=== PATIENT | female | born 1995 | race Caucasian/White ===

== ENCOUNTER 2018-04-21 11:14 | Inpatient (IN) | payer BC ==
[2018-04-21] MEDS ORDERED: Terbutaline 1 MG/ML SDV SUBCUT PRN (11:53)
[2018-04-21] MEDS ORDERED: Methylergonovine 0.2 MG/1 ML Amp IM PRN (11:54)
[2018-04-21] MEDS ORDERED: Nalbuphine 10 MG/1 ML Vial IVPUSH PRN (11:54)
[2018-04-21] MEDS ORDERED: Tranexamic Acid 1,000 MG in Sodium Chloride 0.9% 100 ML IV PRN (11:54)
[2018-04-21] MEDS ORDERED: Sodium Chloride 0.9% 2.5 ML Syringe FLUSH PRN (11:54)
[2018-04-21] MEDS ORDERED: Butorphanol 1 MG/ML SDV IVPUSH PRN (11:54)
[2018-04-21] MEDS ORDERED: Water For Irrigation,Sterile 1,000 ML Container IRR PRN (11:54)
[2018-04-21] MEDS ORDERED: Misoprostol 200 MCG Tab PO PRN (11:54)
[2018-04-21] MEDS ORDERED: Carboprost Tromethamine 250 MCG/1 ML Amp IM PRN (11:54)
[2018-04-21] MEDS ORDERED: Sodium Chloride 0.9% 10 ML Syringe FLUSH PRN (11:54)
[2018-04-21] MEDS ORDERED: Lidocaine 1% 50 ML MDV INJECT PRN (11:54)
[2018-04-21] MEDS ORDERED: Oxytocin/0.9 % Sodium Chloride 30 UNIT/500 ML BAG IV SCH ×2 (12:00)
[2018-04-21] MEDS: Lactated Ringers 1,000 ML IV SCH ×2 (12:12→16:20)
--- NOTE | 2018-04-21 16:22 | PCM.PREANE ---
Preanesthetic Assessment - Anesthesia/Transfusion/Family Hx Anesthesia History: Prior Anesthesia Without Reaction Family History of Anesthesia Reaction: No Transfusion History: No Prior Transfusion(s) - Review of Systems General: No Symptoms Pulmonary: No Symptoms Cardiovascular: No Symptoms Gastrointestinal: No Symptoms Neurological: No Symptoms Other: Reports: None - Physical Assessment NPO Status Date: 04/21/18 NPO Status Time: 15:00 (sips/chips) Blood Pressure: 124/68 Height: 5 ft 8 in Weight: 172 lb ASA Class: 2 Mental Status: Alert & Oriented x3 Airway Class: Mallampati = 2 Dentition: Reports: Normal Dentition Thyro-Mental Finger Breadths: 3 Mouth Opening Finger Breadths: 3 ROM/Head Extension: Full Lungs: Clear to Auscultation, Normal Respiratory Effort Cardiovascular: Regular Rate, Regular Rhythm - Lab Values: Laboratory Last Values WBC 8.25 K/uL (4.0-11.0) 04/21/18 12:12 RBC 4.38 M/uL (4.30-5.90) 04/21/18 12:12 Hgb 11.8 g/dL (12.0-16.0) L 04/21/18 12:12 Hct 35.9 % (36.0-46.0) L 04/21/18 12:12 MCV 82.0 fL (80.0-98.0) 04/21/18 12:12 MCH 26.9 pg (27.0-32.0) L 04/21/18 12:12 MCHC 32.9 g/dL (31.0-37.0) 04/21/18 12:12 RDW Std Deviation 43.2 fl (28.0-62.0) 04/21/18 12:12 RDW Coeff of Carola 15 % (11.0-15.0) 04/21/18 12:12 Plt Count 121 K/uL (150-400) L 04/21/18 12:12 MPV 12.60 fL (7.40-12.00) H 04/21/18 12:12 Nucleated RBC % 0.0 /100WBC 04/21/18 12:12 Nucleated RBCs # 0 K/uL 04/21/18 12:12 Membrane Rupture POSITIVE 04/21/18 11:20 Blood Type A POSITIVE 04/21/18 12:12 Antibody Screen NEGATIVE 04/21/18 12:12 - Allergies Allergies/Adverse Reactions: Allergies Allergy/AdvReac Type Severity Reaction Status Date / Time No Known Allergies Allergy Verified 04/21/18 11:33 - Blood Blood Available: No Product(s) Available: None - Anesthesia Plan Free Text/Narrative:: Labor Epidural - Acknowledgements Anesthesia Type Planned: Epidural Pt an Appropriate Candidate for the Planned Anesthesia: Yes Alternatives and Risks of Anesthesia Discussed w Pt/Guardian: Yes Pt/Guardian Understands and Agrees with Anesthesia Plan: Yes PreAnesthesia Questionnaire HEENT History: Reports: Impaired Vision Cardiovascular History: Reports: None Respiratory History: Reports: Asthma Gastrointestinal History: Reports: None Genitourinary History: Reports: None 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, Musculoskeletal History: Reports: Fracture Neurological History: Reports: None Psychiatric History: Reports: Anxiety, Depression, Emotional Problems, Panic Attack Endocrine/Metabolic History: Reports: None Hematologic History: Reports: None, Other (See Below) ( 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) Immunologic History: Reports: None Oncologic (Cancer) History: Reports: None Dermatologic History: Reports: Eczema - Infectious Disease History Infectious Disease History: Reports: None - Past Surgical History HEENT Surgical History: Reports: Adenoidectomy, Myringotomy w Tube(s), Tonsillectomy Other HEENT Surgeries/Procedures: patch on left eare drum GI Surgical History: Reports: None Female Surgical History: Reports: None Musculoskeletal Surgical History: Reports: ORIF Other Musculoskeletal Surgeries/Procedures:: pinning left elbow - SUBSTANCE USE Smoking Status *Q: Never Smoker Second Hand Smoke Exposure: Yes Recreational Drug Use History: No - HOME MEDS Home Medications: Home Meds PNV95/Ferrous Fumarate/FA [ Tablet] 1 tab PO DAILY 04/21/18 [History] - CURRENT (IN HOUSE) MEDS Current Meds: Current Medications Butorphanol Tartrate (Stadol) 1 mg IVPUSH Q1H PRN PRN Reason: Pain Carboprost Tromethamine (Hemabate Ds) 250 mcg IM ASDIRECTED PRN PRN Reason: Post Hemorrhage Tranexamic Acid 1,000 mg/ (Sodium Chloride) 110 mls @ 660 mls/hr IV ONETIME PRN PRN Reason: Bleeding Oxytocin/Sodium Chloride (Oxytocin 30 Unit/500 Ml-Ns) 30 unit in 500 mls @ 2 mls/hr IV TITRATE LEESA; Protocol Last Titration: 04/21/18 15:25 Dose: 18 munits/min, 18 mls/hr Lactated Ringer's (Ringers, Lactated) 1,000 mls @ 150 mls/hr IV ASDIRECTED LEESA Last Admin: 04/21/18 16:20 Dose: 999 mls/hr Oxytocin/Sodium Chloride (Oxytocin 30 Unit/500 Ml-Ns) 30 unit in 500 mls @ 999 mls/hr IV TITRATE LEESA Lidocaine HCl (Xylocaine 1%) 50 ml INJECT ONETIME PRN PRN Reason: Laceration repair Methylergonovine Maleate (Methergine) 0.2 mg IM ASDIRECTED PRN PRN Reason: Post Hemorrhage Misoprostol (Cytotec) 200 mcg PO ONETIME PRN PRN Reason: Post Hemorrhage Nalbuphine HCl (Nubain) 10 mg IVPUSH Q1H PRN PRN Reason: Pain (severe 7-10) Sodium Chloride (Saline Flush) 10 ml FLUSH ASDIRECTED PRN PRN Reason: Keep Vein Open Sodium Chloride (Saline Flush) 2.5 ml FLUSH ASDIRECTED PRN PRN Reason: Keep Vein Open Sterile Water (Sterile Water For Irrigation) 1,000 ml IRR ASDIRECTED PRN PRN Reason: delivery Terbutaline Sulfate (Brethine) 0.25 mg SUBCUT ASDIRECTED PRN PRN Reason: Tacysystole
[2018-04-21] MEDS ORDERED: Ropivacaine HCl/PF 100 ML ONE (16:25)
[2018-04-21] MEDS ORDERED: fentaNYL 100 MCG/2 ML SDV ONE (16:25)
[2018-04-21] MEDS ORDERED: Measles, Mumps & Rubella Vaccine 0.5 ML SDV SUBCUT ONE (20:12)
[2018-04-21] MEDS ORDERED: Lanolin 100% Cream 7 GM Tube TOP PRN (20:12)
[2018-04-21] MEDS ORDERED: oxyCODONE 5 MG Tab PO PRN (20:12)
[2018-04-21] MEDS ORDERED: Witch Hazel Medicated Pads 40/Jar TOP PRN (20:12)
[2018-04-21] MEDS ORDERED: Benzocaine/Menthol 20%-0.5% Spray 78 GM Cannister TOP PRN (20:12)
[2018-04-21] MEDS ORDERED: Docusate Sodium 100 MG Cap PO PRN (20:12)
[2018-04-21] MEDS ORDERED: Acetaminophen 500 MG Tab PO PRN (20:12)
[2018-04-21] MEDS ORDERED: Bisacodyl 10 MG Supp RECTAL PRN (20:12)
[2018-04-21] MEDS ORDERED: Ibuprofen 400 MG Tab PO PRN (20:12)
--- NOTE | 2018-04-21 20:18 | PCM.DEL ---
L & D Note - General Info Date of Service: 04/21/18 - Delivery Note Labor: Induced by Oxytocin Delivery Outcome: Livebirth Infant Delivery Method: Spontaneous Vaginal Delivery-Single Delivery Mode: Spontaneous Presentation: Left Occiput Anterior (DARIO) Nuchal Cord: None Anesthesia Type: Epidural Amniotic Fluid Description: Clear Episiotomy Type: None Laceration: 2nd Degree Suture type: Vicryl Suture size: 2-0 Placenta: Intact, Spontaneous Cord: 3 Vessels Estimated Blood Loss: 150 Score 1 min: 9 Score 5 min: 9 Induction Criteria - Wolfe Score Wolfe Score Dilation: 3-4 cm Wolfe Score Effacement: >80% Wolfe Score Infant's Station: -3 Wolfe Score Consistency: Medium Wolfe Score Cervix Position: Midposition Wolfe Score Total: 7 Wolfe Score Presenting Part: Reports: Cephalic - Induction Gestational Age >/= 39 wks: Yes Estimated Pelvis: Reports: Adequate Reassuring Monitoring Strip: Yes Absence of Tachy Systole: Yes - General Info Date of Service: 04/21/18 - Patient Data Vitals - Most Recent: Last Vital Signs Temp Pulse Resp BP 124/68 04/21/18 17:07 Pulse Ox Weight - Most Recent: 172 lb Lab Results Last 24 Hours: Laboratory Results - last 24 hr 04/21/18 04/21/18 04/21/18 Range/Units 11:20 12:12 12:12 WBC 8.25 (4.0-11.0) K/uL RBC 4.38 (4.30-5.90) M/uL Hgb 11.8 L (12.0-16.0) g/dL Hct 35.9 L (36.0-46.0) % MCV 82.0 (80.0-98.0) fL MCH 26.9 L (27.0-32.0) pg MCHC 32.9 (31.0-37.0) g/dL RDW Std Deviation 43.2 (28.0-62.0) fl RDW Coeff of Carola 15 (11.0-15.0) % Plt Count 121 L (150-400) K/uL MPV 12.60 H (7.40-12.00) fL Nucleated RBC % 0.0 /100WBC Nucleated RBCs # 0 K/uL Membrane Rupture POSITIVE Blood Type A POSITIVE Antibody Screen NEGATIVE Med Orders - Current: Current Medications Discontinued Medications Butorphanol Tartrate (Stadol) 1 mg IVPUSH Q1H PRN PRN Reason: Pain Carboprost Tromethamine (Hemabate Ds) 250 mcg IM ASDIRECTED PRN PRN Reason: Post Hemorrhage Fentanyl (Sublimaze) Confirm Administered D[facility] Stop: 04/21/18 16:26 Last Admin: 04/21/18 18:01 Dose: Not Given Tranexamic Acid 1,000 mg/ (Sodium Chloride) 110 mls @ 660 mls/hr IV ONETIME PRN PRN Reason: Bleeding Oxytocin/Sodium Chloride (Oxytocin 30 Unit/500 Ml-Ns) 30 unit in 500 mls @ 2 mls/hr IV TITRATE LEESA; Protocol Last Titration: 04/21/18 17:20 Dose: 22 munits/min, 22 mls/hr Lactated Ringer's (Ringers, Lactated) 1,000 mls @ 150 mls/hr IV ASDIRECTED LEESA Last Admin: 04/21/18 16:20 Dose: 999 mls/hr Oxytocin/Sodium Chloride (Oxytocin 30 Unit/500 Ml-Ns) 30 unit in 500 mls @ 999 mls/hr IV TITRATE LEESA Ropivacaine (Naropin 0.2%) Confirm Administered Dose 100 mls @ as directed .ROUTE .[facility] ONE Stop: 04/21/18 16:26 Last Admin: 04/21/18 18:00 Dose: Not Given Lidocaine HCl (Xylocaine 1%) 50 ml INJECT ONETIME PRN PRN Reason: Laceration repair Methylergonovine Maleate (Methergine) 0.2 mg IM ASDIRECTED PRN PRN Reason: Post Hemorrhage Misoprostol (Cytotec) 200 mcg PO ONETIME PRN PRN Reason: Post Hemorrhage Nalbuphine HCl (Nubain) 10 mg IVPUSH Q1H PRN PRN Reason: Pain (severe 7-10) Sodium Chloride (Saline Flush) 10 ml FLUSH ASDIRECTED PRN PRN Reason: Keep Vein Open Sodium Chloride (Saline Flush) 2.5 ml FLUSH ASDIRECTED PRN PRN Reason: Keep Vein Open Sterile Water (Sterile Water For Irrigation) 1,000 ml IRR ASDIRECTED PRN PRN Reason: delivery Terbutaline Sulfate (Brethine) 0.25 mg SUBCUT ASDIRECTED PRN PRN Reason: Tacysystole - Problem List & Annotations (1) Vaginal delivery SNOMED Code(s): 761268381 Code(s): O80 - ENCOUNTER FOR FULL-TERM UNCOMPLICATED DELIVERY Status: Acute Current Visit: Yes - Problem List Review Problem List Initiated/Reviewed/Updated: Yes - My Orders Last 24 Hours: My Active Orders 04/21/18 11:31 Non Stress Test [RC] PER UNIT ROUTINE Up ad Daija [RC] ASDIRECTED Vaginal Exam [RC] Click to Edit Vital Signs [RC] PER UNIT ROUTINE 04/21/18 11:53 Bedrest Bathroom Privileges [RC] ASDIRECTED Oxygen Therapy [RC] ASDIRECTED Vaginal Exam [RC] PRN 04/21/18 11:54 Heart Tones [RC] CONTINUOUS May Shower [RC] ASDIRECTED Notify Provider [RC] PRN 04/21/18 19:44 BLOOD GAS ARTERIAL UMBILICAL [BG] Routine BLOOD GAS VENOUS UMBILICAL [BG] Routine 04/21/18 20:12 Acetaminophen [Tylenol Extra Strength] 1,000 mg PO Q4H PRN Acetaminophen [Tylenol Extra Strength] 500 mg PO Q4H PRN Benzocaine/Menthol [Dermoplast Pain Relief 20%-0.5% [place]] 78 gm TOP ASDIRECTED PRN Bisacodyl [Dulcolax] 10 mg RECTAL ONETIME PRN Docusate Sodium [Colace] 100 mg PO BID PRN Ibuprofen [Motrin] 400 mg PO Q4H PRN Ibuprofen [Motrin] 800 mg PO Q6H PRN Lanolin [Lansinoh HPA] See Dose Instructions TOP ASDIRECTED PRN Measles, Mumps & Rubella [M-M-R II Vaccine] 0.5 ml SUBCUT .ONCE ONE Witch Nydia [Tucks] 1 pad TOP ASDIRECTED PRN oxyCODONE 5 mg PO Q2H PRN Breast Pump [WOMSER] Per Unit Routine Resuscitation Status Routine 04/21/18 20:13 Patient Status [ADT] Routine May Shower [RC] ASDIRECTED Up ad Daija [RC] ASDIRECTED Vital Signs [RC] PER UNIT ROUTINE Assess Lochia [WOMSER] Per Unit Routine Assess Uterine Involution [WOMSER] Per Unit Routine Perineal Care [OM.PC] Per Unit Routine Peripheral IV Discontinue [OM.PC] Routine 04/22/18 05:11 HEMOGLOBIN/HEMATOCRIT,HH [HEME] Timed 04/22/18 Breakfast Regular Diet [DIET]
--- NOTE | 2018-04-22 02:11 | OR ---
SURGEON: Cristina Garcia MD DATE OF PROCEDURE: 04/21/2018 PREOPERATIVE DIAGNOSES: 1. Term after 39 weeks and 5 days gestation. 2. Premature rupture of membrane. POSTOPERATIVE DIAGNOSES: 1. Term after 39 weeks and 5 days gestation. 2. Premature rupture of membrane. 3. Delivered. PROCEDURE: Induction of labor for premature rupture of membrane with spontaneous vaginal delivery and repair of perineal laceration. ANESTHESIA: Epidural. ESTIMATED BLOOD LOSS: 150 mL. COMPLICATIONS: None. DISPOSITION: Mother and baby stable in Labor and Delivery room, bonding. FINDINGS: Male infant, weight 3570 g, scores 9 and 9 at 1 and 5 minutes respectively. Grossly normal placenta with 3-vessel cord. Midline second- degree perineal laceration. BRIEF HISTORY: Arti is a 22-year-old G2, P1-0-0-1, who presented this morning at 39 weeks and 5 days gestation with a history of leakage of clear fluid approximately 10 hours prior to her presentation with no accompanying contractions. She denied vaginal bleeding and reported movement. Her care was uncomplicated. GBS negative. She was confirmed to be grossly ruptured and was 3 cm dilated without contractions observed on the monitor. Management options were discussed with the patient including expected management versus induction of labor with Pitocin. Risks and benefits of each options were discussed extensively and the patient opted to proceed with induction of labor. Pitocin was then commenced and titrated up as per protocol. She then requested and received epidural for pain management, thereafter she was re-examined and found to have a forebag which was ruptured. At that time, she was 4 cm dilated, with clear fluid return. She became fully dilated approximately 2 hours later and commenced active pushing. She pushed quite well, was set up for delivery in modified dorsal lithotomy position. heart tracing remained category 1. DESCRIPTION OF PROCEDURE: She had a spontaneous vaginal delivery of a live male infant in left occipital anterior position, no nuchal cord, clear amniotic fluid at delivery. Anterior and posterior shoulders and the rest of the baby were delivered without difficulty. Baby was vigorous and cried spontaneously at . The baby was delivered onto the maternal abdomen in attendance of the nursery nurse who was stimulating and drying the baby. Delayed cord clamping was observed and the cord was subsequently cut by the father of the baby. With delivery of the infant, oxytocin infusion was converted to titration for active management of third stage of labor. Cord blood and gas samples were obtained. The placenta was delivered by controlled cord traction and appeared to be complete and intact. The examination of the perineum, vaginal casas and cervix revealed midline second- degree laceration which was repaired in 3 layers using 2-0 Vicryl suture.Repair was hemostatic. Uterine massage was performed. The uterus was found to be well contracted below the umbilicus. The patient tolerated the procedure well. Sponge, instrument, and needle counts were correct at the end of the delivery. ADUMVIV / MODL /[id number] MTDD
[2018-04-22] MEDS: Ibuprofen 800 MG Tab PO PRN ×2 (05:24→20:13)
[2018-04-22] MEDS: Acetaminophen 500 MG Tab PO PRN ×2 (08:32→20:12)
--- NOTE | 2018-04-22 09:00 | PCM.PNPP ---
- General Info Date of Service: 04/22/18 Functional Status: Reports: Pain Controlled, Tolerating Diet, Ambulating, Urinating - Review of Systems General: Denies: Fever, Weakness, Malaise HEENT: Denies: Headaches Pulmonary: Denies: Shortness of Breath, Pleuritic Chest Pain Cardiovascular: Denies: Chest Pain, Palpitations, Dyspnea on Exertion Genitourinary: Denies: Dysuria, Retention Psychiatric: Denies: Confusion, Depression, Mood Lability, Anxiety - General Info Date of Service: 04/22/18 - Patient Data Vital Signs - Most Recent: Last Vital Signs Temp 36.7 C 04/22/18 05:00 Pulse 70 04/22/18 05:00 Resp 17 04/22/18 05:00 BP 135/80 04/22/18 05:00 Pulse Ox 97 04/22/18 05:00 Weight - Most Recent: 172 lb Lab Results - Last 24 Hours: Laboratory Results - last 24 hr 04/21/18 04/21/18 04/21/18 Range/Units 11:20 12:12 12:12 WBC 8.25 (4.0-11.0) K/uL RBC 4.38 (4.30-5.90) M/uL Hgb 11.8 L (12.0-16.0) g/dL Hct 35.9 L (36.0-46.0) % MCV 82.0 (80.0-98.0) fL MCH 26.9 L (27.0-32.0) pg MCHC 32.9 (31.0-37.0) g/dL RDW Std Deviation 43.2 (28.0-62.0) fl RDW Coeff of Carola 15 (11.0-15.0) % Plt Count 121 L (150-400) K/uL MPV 12.60 H (7.40-12.00) fL Nucleated RBC % 0.0 /100WBC Nucleated RBCs # 0 K/uL Cord ABG pH (7.18-7.38) Cord ABG Base Excess (-10--2) Cord VBG pH (7.25-7.45) Cord VBG Base Excess (-10--2) Membrane Rupture POSITIVE Blood Type A POSITIVE Antibody Screen NEGATIVE 04/21/18 04/22/18 Range/Units 19:43 06:20 WBC (4.0-11.0) K/uL RBC (4.30-5.90) M/uL Hgb 10.9 L (12.0-16.0) g/dL Hct 33.6 L (36.0-46.0) % MCV (80.0-98.0) fL MCH (27.0-32.0) pg MCHC (31.0-37.0) g/dL RDW Std Deviation (28.0-62.0) fl RDW Coeff of Carola (11.0-15.0) % Plt Count (150-400) K/uL MPV (7.40-12.00) fL Nucleated RBC % /100WBC Nucleated RBCs # K/uL Cord ABG pH 7.330 (7.18-7.38) Cord ABG Base Excess -4 (-10--2) Cord VBG pH 7.377 (7.25-7.45) Cord VBG Base Excess -5 (-10--2) Membrane Rupture Blood Type Antibody Screen Med Orders - Current: Current Medications Acetaminophen (Tylenol Extra Strength) 500 mg PO Q4H PRN PRN Reason: Pain Acetaminophen (Tylenol Extra Strength) 1,000 mg PO Q4H PRN PRN Reason: Pain Last Admin: 04/22/18 08:32 Dose: 1,000 mg Benzocaine/Menthol (Dermoplast Pain Relief 20%-0.5% [place]) 78 gm TOP ASDIRECTED PRN PRN Reason: Perineal Comfort Measure Bisacodyl (Dulcolax) 10 mg RECTAL ONETIME PRN PRN Reason: Constipation Docusate Sodium (Colace) 100 mg PO BID PRN PRN Reason: Constipation Emollient Ointment (Lansinoh Hpa) 0 gm TOP ASDIRECTED PRN PRN Reason: Sore Nipples Ibuprofen (Motrin) 400 mg PO Q4H PRN PRN Reason: Pain Ibuprofen (Motrin) 800 mg PO Q6H PRN PRN Reason: Pain Last Admin: 04/22/18 05:24 Dose: 800 mg Oxycodone HCl (Oxycodone) 5 mg PO Q2H PRN PRN Reason: Pain Witch Nydia (Tucks) 1 pad TOP ASDIRECTED PRN PRN Reason: comfort care Discontinued Medications Butorphanol Tartrate (Stadol) 1 mg IVPUSH Q1H PRN PRN Reason: Pain Carboprost Tromethamine (Hemabate Ds) 250 mcg IM ASDIRECTED PRN PRN Reason: Post Hemorrhage Fentanyl (Sublimaze) Confirm Administered Dose 100 mcg .ROUTE .[facility] ONE Stop: 04/21/18 16:26 Last Admin: 04/21/18 18:01 Dose: Not Given Tranexamic Acid 1,000 mg/ (Sodium Chloride) 110 mls @ 660 mls/hr IV ONETIME PRN PRN Reason: Bleeding Oxytocin/Sodium Chloride (Oxytocin 30 Unit/500 Ml-Ns) 30 unit in 500 mls @ 2 mls/hr IV TITRATE LEESA; Protocol Last Titration: 04/21/18 17:20 Dose: 22 munits/min, 22 mls/hr Lactated Ringer's (Ringers, Lactated) 1,000 mls @ 150 mls/hr IV ASDIRECTED LEESA Last Admin: 04/21/18 16:20 Dose: 999 mls/hr Oxytocin/Sodium Chloride (Oxytocin 30 Unit/500 Ml-Ns) 30 unit in 500 mls @ 999 mls/hr IV TITRATE LEESA Ropivacaine (Naropin 0.2%) Confirm Administered Dose 100 mls @ as directed .ROUTE .[facility] ONE Stop: 04/21/18 16:26 Last Admin: 04/21/18 18:00 Dose: Not Given Lidocaine HCl (Xylocaine 1%) 50 ml INJECT ONETIME PRN PRN Reason: Laceration repair Measles/Mumps/Rubella Vaccine Live (M-M-R Ii Vaccine) 0.5 ml SUBCUT .ONCE ONE Stop: 04/21/18 20:13 Methylergonovine Maleate (Methergine) 0.2 mg IM ASDIRECTED PRN PRN Reason: Post Hemorrhage Misoprostol (Cytotec) 200 mcg PO ONETIME PRN PRN Reason: Post Hemorrhage Nalbuphine HCl (Nubain) 10 mg IVPUSH Q1H PRN PRN Reason: Pain (severe 7-10) Sodium Chloride (Saline Flush) 10 ml FLUSH ASDIRECTED PRN PRN Reason: Keep Vein Open Sodium Chloride (Saline Flush) 2.5 ml FLUSH ASDIRECTED PRN PRN Reason: Keep Vein Open Sterile Water (Sterile Water For Irrigation) 1,000 ml IRR ASDIRECTED PRN PRN Reason: delivery Terbutaline Sulfate (Brethine) 0.25 mg SUBCUT ASDIRECTED PRN PRN Reason: Tacysystole - Interaction Infant Disposition, : [place] in Room with Family Feeding: Breastfed Infant; Nursed Well Support Person: , Mother, Sister, Other (see below) - Recovery Exam Fundal Level: 2 Fingerbreadths Above Umbilicus Fundal Placement: Midline Lochia Amount: Scant Lochia Color: Rubra/Red Perineum Description: Intact, Minimal Bruising/Swelling Episiotomy/Laceration: Approximated Bladder Status: Voiding Urinary Elimination: Voided - Exam General: Alert, Oriented HEENT: Pupils Equal Lungs: Clear to Auscultation, Normal Respiratory Effort Cardiovascular: Regular Rate, Regular Rhythm GI/Abdominal Exam: Soft, Non-Tender Extremities: Non-Tender, Pedal Edema Skin: Warm Psy/Mental Status: Alert, Normal Affect, Normal Mood - Problem List & Annotations (1) Vaginal delivery SNOMED Code(s): 031111461 Code(s): O80 - ENCOUNTER FOR FULL-TERM UNCOMPLICATED DELIVERY Status: Acute Current Visit: Yes - Problem List Review Problem List Initiated/Reviewed/Updated: Yes - My Orders Last 24 Hours: My Active Orders 04/21/18 11:31 Non Stress Test [RC] PER UNIT ROUTINE Up ad Daija [RC] ASDIRECTED Vaginal Exam [RC] Click to Edit Vital Signs [RC] PER UNIT ROUTINE 04/21/18 11:53 Bedrest Bathroom Privileges [RC] ASDIRECTED Oxygen Therapy [RC] ASDIRECTED Vaginal Exam [RC] PRN 04/21/18 11:54 Heart Tones [RC] CONTINUOUS May Shower [RC] ASDIRECTED Notify Provider [RC] PRN 04/21/18 20:12 Acetaminophen [Tylenol Extra Strength] 1,000 mg PO Q4H PRN Acetaminophen [Tylenol Extra Strength] 500 mg PO Q4H PRN Benzocaine/Menthol [Dermoplast Pain Relief 20%-0.5% [place]] 78 gm TOP ASDIRECTED PRN Bisacodyl [Dulcolax] 10 mg RECTAL ONETIME PRN Docusate Sodium [Colace] 100 mg PO BID PRN Ibuprofen [Motrin] 400 mg PO Q4H PRN Ibuprofen [Motrin] 800 mg PO Q6H PRN Lanolin [Lansinoh HPA] See Dose Instructions TOP ASDIRECTED PRN Witrogelio Nydia [Tucks] 1 pad TOP ASDIRECTED PRN oxyCODONE 5 mg PO Q2H PRN Breast Pump [WOMSER] Per Unit Routine Resuscitation Status Routine 04/21/18 20:13 Patient Status [ADT] Routine May Shower [RC] ASDIRECTED Up ad Daija [RC] ASDIRECTED Vital Signs [RC] PER UNIT ROUTINE Assess Lochia [WOMSER] Per Unit Routine Assess Uterine Involution [WOMSER] Per Unit Routine Perineal Care [OM.PC] Per Unit Routine Peripheral IV Discontinue [OM.PC] Routine 04/22/18 Breakfast Regular Diet [DIET] - Assessment Assessment:: PPD# 1 s/p , stable and afebrile Clinically stable for diacharge today - Plan Plan:: Discharge instructions reviewed. Nothing in the vagina for 6 weeks Bleeding and infection precautions reviewed Continue PNV depression S/S reviewed, encouraged to call with concerns Follow up in 6 weeks at [facility]
--- NOTE | 2018-04-22 10:21 | PCM.POSTAN ---
POST ANESTHESIA ASSESSMENT - MENTAL STATUS Mental Status: Alert - RESPIRATORY Respiratory Status: Respiratory Rate WNL, Airway Patent, O2 Saturation Stable - CARDIOVASCULAR CV Status: Pulse Rate WNL (Patient is comfortable at this time, no signs or symptoms of anesthesia related problems) - GASTROINTESTINAL GI Status: No Symptoms
== END 2018-04-22 21:56 | disposition home or self-care (01) | DRG 560 ==
LOC: MW.OBCHECK 11:14 → MW.OB 11:54 → MW.OBCHECK 12:11 → OBSVTOIN 20:13 → MW.OB 20:13
PROVIDERS: ADMIT Obstetrics & Gynecology; ATTEND Obstetrics & Gynecology
PROC: 10E0XZZ Delivery of Products of Conception, External Approach (ICD-10-PCS; principal; 2018-04-21)
PROC: 3E033VJ Introduction of Other Hormone into Peripheral Vein, Percutaneous Approach (ICD-10-PCS; 2018-04-21)
PROC: 10907ZC Drainage of Amniotic Fluid, Therapeutic from Products of Conception, Via Natural or Artificial Opening (ICD-10-PCS; 2018-04-21)
PROC: 6A550ZT Pheresis of Cord Blood Stem Cells, Single (ICD-10-PCS; 2018-04-21)
PROC: 0KQM0ZZ Repair Perineum Muscle, Open Approach (ICD-10-PCS; 2018-04-21)
PROC: 00HU33Z Insertion of Infusion Device into Spinal Canal, Percutaneous Approach (ICD-10-PCS; 2018-04-21)
DX: O42.02 Full-term premature rupture of membranes, onset of labor within 24 hours of rupture (principal); O70.1 Second degree perineal laceration during delivery; Z3A.39 39 weeks gestation of pregnancy; Z37.0 Single live birth
CPT/HCPCS: 36415; 51702; 59025; 59409; 82803; 84112; 85014; 85018; 85027; 86850; 86900; 86901; 90707; A9270-GY; J2590; J7120

== ENCOUNTER 2019-12-05 05:11 | Inpatient (IN) | payer BC ==
[2019-12-05] MEDS ORDERED: Sodium Chloride 0.9% 2.5 ML Syringe FLUSH PRN (05:32)
[2019-12-05] MEDS ORDERED: Terbutaline 1 MG/ML SDV SUBCUT PRN (05:32)
[2019-12-05] MEDS ORDERED: Sodium Chloride 0.9% 10 ML SDV IV PRN (05:32)
[2019-12-05] MEDS ORDERED: Water For Irrigation,Sterile 1,000 ML Container IRR PRN (05:32)
[2019-12-05] MEDS ORDERED: Misoprostol 200 MCG Tab PO PRN (05:32)
[2019-12-05] MEDS ORDERED: Butorphanol 1 MG/ML SDV IVPUSH PRN (05:32)
[2019-12-05] MEDS ORDERED: Carboprost Tromethamine 250 MCG/1 ML Amp IM PRN (05:32)
[2019-12-05] MEDS ORDERED: Sodium Chloride 0.9% 10 ML Syringe FLUSH PRN (05:32)
[2019-12-05] MEDS ORDERED: Lidocaine 1% 50 ML MDV INJECT PRN (05:32)
[2019-12-05] MEDS ORDERED: Methylergonovine 0.2 MG/1 ML Amp IM PRN (05:32)
[2019-12-05] MEDS ORDERED: Nalbuphine 10 MG/1 ML Vial IVPUSH PRN (05:32)
[2019-12-05] MEDS ORDERED: Tranexamic Acid 1,000 MG in Sodium Chloride 0.9% 100 ML IV PRN (05:32)
[2019-12-05] MEDS ORDERED: Ondansetron 4 MG/2 ML SDV IVPUSH PRN (05:32)
[2019-12-05] MEDS ORDERED: Oxytocin/0.9 % Sodium Chloride 30 UNIT/500 ML BAG IV SCH ×2 (05:45)
[2019-12-05] MEDS: Lactated Ringers 1,000 ML IV SCH ×2 (06:03→07:09)
[2019-12-05] MEDS ORDERED: Bupivicaine/fentaNYL/NS 250 ML ONE (07:06)
--- NOTE | 2019-12-05 07:43 | PCM.PREANE ---
Preanesthetic Assessment - Procedure Proposed Procedure: COntinuous labor epidural - Anesthesia/Transfusion/Family Hx Anesthesia History: Prior Anesthesia Without Reaction Transfusion History: No Prior Transfusion(s) - Review of Systems General: No Symptoms Pulmonary: No Symptoms Cardiovascular: No Symptoms Gastrointestinal: Vomiting Neurological: No Symptoms Other: Reports: None - Physical Assessment Height: 5 ft 8 in Weight: 77.111 kg ASA Class: 2 Mental Status: Alert & Oriented x3 Airway Class: Mallampati = 1 Dentition: Reports: Normal Dentition ROM/Head Extension: Full Lungs: Clear to Auscultation, Normal Respiratory Effort Cardiovascular: Regular Rate, Regular Rhythm - Lab Values: Laboratory Last Values WBC 7.09 K/uL (4.0-11.0) 12/05/19 06:03 RBC 4.58 M/uL (4.30-5.90) 12/05/19 06:03 Hgb 12.4 g/dL (12.0-16.0) 12/05/19 06:03 Hct 38.4 % (36.0-46.0) 12/05/19 06:03 MCV 83.8 fL (80.0-98.0) 12/05/19 06:03 MCH 27.1 pg (27.0-32.0) 12/05/19 06:03 MCHC 32.3 g/dL (31.0-37.0) 12/05/19 06:03 RDW Std Deviation 45.0 fl (28.0-62.0) 12/05/19 06:03 RDW Coeff of Carola 15 % (11.0-15.0) 12/05/19 06:03 Plt Count 111 K/uL (150-400) L 12/05/19 06:03 MPV 13.30 fL (7.40-12.00) H 12/05/19 06:03 Nucleated RBC % 0.0 /100WBC 12/05/19 06:03 Nucleated RBCs # 0 K/uL 12/05/19 06:03 POC Glucose 103 mg/dL (60-110) 12/05/19 05:54 COVID-19 (OSMIN) NEGATIVE (NEGATIVE) 12/05/19 05:25 Blood Type A POSITIVE 12/05/19 06:03 Antibody Screen NEGATIVE 12/05/19 06:03 - Allergies Allergies/Adverse Reactions: Allergies Allergy/AdvReac Type Severity Reaction Status Date / Time No Known Allergies Allergy Verified 11/24/19 16:29 - Anesthesia Plan Pre-Op Medication Ordered: None - Acknowledgements Anesthesia Type Planned: Epidural Pt an Appropriate Candidate for the Planned Anesthesia: Yes Alternatives and Risks of Anesthesia Discussed w Pt/Guardian: Yes Pt/Guardian Understands and Agrees with Anesthesia Plan: Yes PreAnesthesia Questionnaire HEENT History: Reports: Impaired Vision Cardiovascular History: Reports: None Respiratory History: Reports: None Gastrointestinal History: Reports: None Genitourinary History: Reports: None MANAGER PATIENT History: Reports: None, : 3 Para: 2 Musculoskeletal History: Reports: Fracture Neurological History: Reports: None Psychiatric History: Reports: Anxiety, Emotional Problems, Panic Attack Endocrine/Metabolic History: Reports: None Hematologic History: Reports: Other (See Below) ( 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) Immunologic History: Reports: None Oncologic (Cancer) History: Reports: None Dermatologic History: Reports: Eczema - Infectious Disease History Infectious Disease History: Reports: None - Past Surgical History HEENT Surgical History: Reports: Adenoidectomy, Myringotomy w Tube(s), Tonsillectomy Other HEENT Surgeries/Procedures: patch on left eare drum GI Surgical History: Reports: None Female Surgical History: Reports: None Musculoskeletal Surgical History: Reports: ORIF Other Musculoskeletal Surgeries/Procedures:: pinning left elbow - Past Imaging History Past Imaging History: Reports: None - HOME MEDS Home Medications: Home Meds Pnv No.95/Ferrous Fum/Folic AC [ Tablet] 1 tab PO DAILY 04/21/18 [History] - CURRENT (IN HOUSE) MEDS Current Meds: Current Medications Butorphanol Tartrate (Stadol) 1 mg IVPUSH Q1H PRN PRN Reason: Pain Carboprost Tromethamine (Hemabate Ds) 250 mcg IM ASDIRECTED PRN PRN Reason: Post Hemorrhage Oxytocin/Sodium Chloride (Oxytocin 30 Unit/500 Ml-Ns) 30 unit in 500 mls @ 999 mls/hr IV TITRATE LEESA Tranexamic Acid 1,000 mg/ (Sodium Chloride) 110 mls @ 660 mls/hr IV ONETIME PRN PRN Reason: Bleeding Oxytocin/Sodium Chloride (Oxytocin 30 Unit/500 Ml-Ns) 30 unit in 500 mls @ 2 mls/hr IV TITRATE LEESA; Protocol Lactated Ringer's (Ringers, Lactated) 1,000 mls @ 150 mls/hr IV ASDIRECTED LEESA Last Admin: 12/05/19 07:09 Dose: 500 mls/hr Documented by: Lidocaine HCl (Xylocaine 1%) 50 ml INJECT ONETIME PRN PRN Reason: Laceration repair Methylergonovine Maleate (Methergine) 0.2 mg IM ASDIRECTED PRN PRN Reason: Post Hemorrhage Misoprostol (Cytotec) 200 mcg PO ONETIME PRN PRN Reason: Post Hemorrhage Nalbuphine HCl (Nubain) 10 mg IVPUSH Q1H PRN PRN Reason: Pain (severe 7-10) Ondansetron HCl (Zofran) 4 mg IVPUSH Q6H PRN PRN Reason: Nausea/Vomiting Sodium Chloride (Saline Flush) 10 ml FLUSH ASDIRECTED PRN PRN Reason: Keep Vein Open Sodium Chloride (Saline Flush) 2.5 ml FLUSH ASDIRECTED PRN PRN Reason: Keep Vein Open Sodium Chloride (Normal Saline) 10 ml IV ASDIRECTED PRN PRN Reason: IV Use Sterile Water (Sterile Water For Irrigation) 1,000 ml IRR ASDIRECTED PRN PRN Reason: delivery Terbutaline Sulfate (Brethine) 0.25 mg SUBCUT ASDIRECTED PRN PRN Reason: Tacysystole Discontinued Medications Fentanyl/Bupivacaine HCl (Fentanyl/Bupivacaine/Ns 2 Mcg-0.125% 250 Ml) Confirm Administered Dose 250 mls @ as directed .ROUTE .[facility]-MED ONE Stop: 12/05/19 07:07
--- NOTE | 2019-12-05 09:39 | PCM.DEL ---
L & D Note - General Info Date of Service: 12/05/19 Mother's Due Date: 12/11/19 - Delivery Note Labor: Augmented by ARM Delivery Outcome: Livebirth Presentation: Left Occiput Anterior (DARIO) Nuchal Cord: None Anesthesia Type: Epidural Amniotic Fluid Description: Clear Laceration: 2nd Degree Suture type: Other (Monocryl) Suture size: 2-0 Placenta: Manual Removal Cord: 3 Vessels Estimated Blood Loss: 300 Resuscitation Needed: No Score 1 min: 8 Score 5 min: 9 Second Stage Interventions: Reports: Pushing Effectively Delivery Comments (Free Text/Narrative):: Live male delivered at 855am , 8/9 weight 3360g - General Info Date of Service: 12/05/19 - Patient Data Weight - Most Recent: 77.111 kg Lab Results Last 24 Hours: Laboratory Results - last 24 hr 12/05/19 12/05/19 12/05/19 Range/Units 05:25 05:54 06:03 WBC 7.09 (4.0-11.0) K/uL RBC 4.58 (4.30-5.90) M/uL Hgb 12.4 (12.0-16.0) g/dL Hct 38.4 (36.0-46.0) % MCV 83.8 (80.0-98.0) fL MCH 27.1 (27.0-32.0) pg MCHC 32.3 (31.0-37.0) g/dL RDW Std Deviation 45.0 (28.0-62.0) fl RDW Coeff of Carola 15 (11.0-15.0) % Plt Count 111 L (150-400) K/uL MPV 13.30 H (7.40-12.00) fL Nucleated RBC % 0.0 /100WBC Nucleated RBCs # 0 K/uL POC Glucose 103 (60-110) mg/dL COVID-19 (OSMIN) NEGATIVE (NEGATIVE) Blood Type Antibody Screen 12/05/19 Range/Units 06:03 WBC (4.0-11.0) K/uL RBC (4.30-5.90) M/uL Hgb (12.0-16.0) g/dL Hct (36.0-46.0) % MCV (80.0-98.0) fL MCH (27.0-32.0) pg MCHC (31.0-37.0) g/dL RDW Std Deviation (28.0-62.0) fl RDW Coeff of Carola (11.0-15.0) % Plt Count (150-400) K/uL MPV (7.40-12.00) fL Nucleated RBC % /100WBC Nucleated RBCs # K/uL POC Glucose (60-110) mg/dL COVID-19 (OSMIN) (NEGATIVE) Blood Type A POSITIVE Antibody Screen NEGATIVE Med Orders - Current: Current Medications Butorphanol Tartrate (Stadol) 1 mg IVPUSH Q1H PRN PRN Reason: Pain Carboprost Tromethamine (Hemabate Ds) 250 mcg IM ASDIRECTED PRN PRN Reason: Post Hemorrhage Oxytocin/Sodium Chloride (Oxytocin 30 Unit/500 Ml-Ns) 30 unit in 500 mls @ 999 mls/hr IV TITRATE LEESA Tranexamic Acid 1,000 mg/ (Sodium Chloride) 110 mls @ 660 mls/hr IV ONETIME PRN PRN Reason: Bleeding Oxytocin/Sodium Chloride (Oxytocin 30 Unit/500 Ml-Ns) 30 unit in 500 mls @ 2 mls/hr IV TITRATE LEESA; Protocol Lactated Ringer's (Ringers, Lactated) 1,000 mls @ 150 mls/hr IV ASDIRECTED LEESA Last Admin: 12/05/19 07:09 Dose: 500 mls/hr Documented by: Lidocaine HCl (Xylocaine 1%) 50 ml INJECT ONETIME PRN PRN Reason: Laceration repair Methylergonovine Maleate (Methergine) 0.2 mg IM ASDIRECTED PRN PRN Reason: Post Hemorrhage Misoprostol (Cytotec) 200 mcg PO ONETIME PRN PRN Reason: Post Hemorrhage Nalbuphine HCl (Nubain) 10 mg IVPUSH Q1H PRN PRN Reason: Pain (severe 7-10) Ondansetron HCl (Zofran) 4 mg IVPUSH Q6H PRN PRN Reason: Nausea/Vomiting Sodium Chloride (Saline Flush) 10 ml FLUSH ASDIRECTED PRN PRN Reason: Keep Vein Open Sodium Chloride (Saline Flush) 2.5 ml FLUSH ASDIRECTED PRN PRN Reason: Keep Vein Open Sodium Chloride (Normal Saline) 10 ml IV ASDIRECTED PRN PRN Reason: IV Use Sterile Water (Sterile Water For Irrigation) 1,000 ml IRR ASDIRECTED PRN PRN Reason: delivery Terbutaline Sulfate (Brethine) 0.25 mg SUBCUT ASDIRECTED PRN PRN Reason: Tacysystole Discontinued Medications Fentanyl/Bupivacaine HCl (Fentanyl/Bupivacaine/Ns 2 Mcg-0.125% 250 Ml) Confirm Administered Dose 250 mls @ as directed .ROUTE .[facility]-MED ONE Stop: 12/05/19 07:07 - Problem List & Annotations (1) Vaginal delivery SNOMED Code(s): 770726370 Code(s): O80 - ENCOUNTER FOR FULL-TERM UNCOMPLICATED DELIVERY Status: Acute Current Visit: No (2) Gestational diabetes mellitus SNOMED Code(s): 23926600 Code(s): O24.419 - GESTATIONAL DIABETES MELLITUS IN , UNSP CONTROL Status: Acute Current Visit: Yes - Problem List Review Problem List Initiated/Reviewed/Updated: Yes - My Orders Last 24 Hours: My Active Orders 12/05/19 05:32 Blood Glucose Check, Bedside [RC] ASDIRECTED Peripheral IV Care [RC] PRN Butorphanol [Stadol] 1 mg IVPUSH Q1H PRN Carboprost Tromethamine [Hemabate DS] 250 mcg IM ASDIRECTED PRN Lidocaine 1% [Xylocaine 1%] 50 ml INJECT ONETIME PRN Methylergonovine [Methergine] 0.2 mg IM ASDIRECTED PRN Nalbuphine [Nubain] 10 mg IVPUSH Q1H PRN Ondansetron [Zofran] 4 mg IVPUSH Q6H PRN Sodium Chloride 0.9% [Normal Saline] 10 ml IV ASDIRECTED PRN Sodium Chloride 0.9% [Saline Flush] 10 ml FLUSH ASDIRECTED PRN Sodium Chloride 0.9% [Saline Flush] 2.5 ml FLUSH ASDIRECTED PRN Terbutaline [Brethine] 0.25 mg SUBCUT ASDIRECTED PRN Tranexamic Acid [Cyklokapron] 1,000 mg Sodium Chloride 0.9% [Normal Saline] 100 ml IV ONETIME Water For Irrigation,Sterile [Sterile Water for Irrigation] 1,000 ml IRR ASDIRECTED PRN miSOPROStoL [Cytotec] 200 mcg PO ONETIME PRN Resuscitation Status Routine 12/05/19 05:37 Patient Status [ADT] Routine Bedrest Bathroom Privileges [RC] ASDIRECTED Communication Order [RC] ASDIRECTED Communication Order [RC] ASDIRECTED Heart Tones [RC] CONTINUOUS Non Stress Test [RC] PER UNIT ROUTINE Notify Provider [RC] PRN Notify Provider [RC] PRN Oxygen Therapy [RC] ASDIRECTED Vaginal Exam [RC] PRN Vaginal Exam [RC] PRN Vital Signs [RC] PER UNIT ROUTINE Scalp Electrode [WOMSER] Per Unit Routine Peripheral IV Insertion Adult [OM.PC] Routine 12/05/19 05:45 Lactated Ringers [Ringers, Lactated] 1,000 ml IV ASDIRECTED Oxytocin/0.9 % Sodium Chloride [Oxytocin 30 Unit/500 ML-NS] 30 unit in 500 ml IV TITRATE Oxytocin/0.9 % Sodium Chloride [Oxytocin 30 Unit/500 ML-NS] 30 unit in 500 ml IV TITRATE 12/05/19 06:03 RPR (SYPHILIS SERO) W/ RFLX [REF] Routine
[2019-12-05] MEDS ORDERED: Acetaminophen 500 MG Tab PO PRN (09:40)
[2019-12-05] MEDS ORDERED: Ibuprofen 400 MG Tab PO PRN (09:40)
[2019-12-05] MEDS ORDERED: Lanolin 100% Cream 7 GM Tube TOP PRN (09:40)
[2019-12-05] MEDS ORDERED: oxyCODONE 5 MG Tab PO PRN (09:40)
[2019-12-05] MEDS ORDERED: Bisacodyl 10 MG Supp RECTAL PRN (09:40)
[2019-12-05] MEDS ORDERED: Ampicillin/Sulbactam Na 3 GM in Sodium Chloride 0.9% 100 ML IV ONE (09:41)
[2019-12-05] MEDS: Docusate Sodium 100 MG Cap PO PRN (10:21)
[2019-12-05] MEDS: Ibuprofen 800 MG Tab PO PRN (10:22)
[2019-12-05] MEDS: Benzocaine/Menthol 20%-0.5% Spray 78 GM Cannister TOP PRN (10:23)
[2019-12-05] MEDS: Witch Hazel Medicated Pads 40/Jar TOP PRN (10:24)
[2019-12-05] MEDS: Acetaminophen 500 MG Tab PO PRN (16:19)
[2019-12-06] MEDS: Acetaminophen 500 MG Tab PO PRN (01:06)
--- NOTE | 2019-12-06 07:48 | PCM48HPAN ---
Post Anesthesia Note - EVALUATION WITHIN 48HRS OF ANESTHETIC Vital Signs in Normal Range: Yes Patient Participated in Evaluation: Yes Respiratory Function Stable: Yes Airway Patent: Yes Cardiovascular Function Stable: Yes Hydration Status Stable: Yes Pain Control Satisfactory: Yes Nausea and Vomiting Control Satisfactory: Yes Mental Status Recovered: Yes Vital Signs: Last Vital Signs Temp 97.0 F 12/06/19 04:36 Pulse 71 12/06/19 04:36 Resp 15 12/06/19 04:36 BP 136/84 12/06/19 04:36 Pulse Ox 96 12/06/19 04:36 - COMMENTS/OBSERVATIONS Free Text/Narrative:: Pt. has been up walking. Denies any weakness in legs or numbness or tingling.
[2019-12-06] MEDS: Benzocaine/Menthol 20%-0.5% Spray 78 GM Cannister TOP PRN (08:09)
[2019-12-06] MEDS: Ibuprofen 800 MG Tab PO PRN (08:09)
[2019-12-06] MEDS: Docusate Sodium 100 MG Cap PO PRN (08:09)
[2019-12-06] MEDS: Witch Hazel Medicated Pads 40/Jar TOP PRN (08:09)
--- NOTE | 2019-12-06 10:30 | PCM.PNPP ---
- General Info Date of Service: 12/06/19 Functional Status: Reports: Pain Controlled, Tolerating Diet, Ambulating, Urinating - Review of Systems General: Reports: No Symptoms HEENT: Reports: No Symptoms Pulmonary: Reports: No Symptoms Cardiovascular: Reports: No Symptoms Gastrointestinal: Reports: No Symptoms Genitourinary: Reports: No Symptoms Musculoskeletal: Reports: No Symptoms Skin: Reports: No Symptoms Neurological: Reports: No Symptoms Psychiatric: Reports: No Symptoms - General Info Date of Service: 12/06/19 - Patient Data Vital Signs - Most Recent: Last Vital Signs Temp 36.2 C 12/06/19 08:00 Pulse 72 12/06/19 08:00 Resp 14 12/06/19 08:00 BP 123/78 12/06/19 08:00 Pulse Ox 97 12/06/19 08:00 Weight - Most Recent: 77.111 kg Lab Results - Last 24 Hours: Laboratory Results - last 24 hr 12/06/19 12/06/19 Range/Units 05:04 05:04 Hgb 12.5 (12.0-16.0) g/dL Hct 38.9 (36.0-46.0) % Fasting Glucose 105 (74-106) mg/dL Med Orders - Current: Current Medications Acetaminophen (Tylenol Extra Strength) 500 mg PO Q4H PRN PRN Reason: Pain Acetaminophen (Tylenol Extra Strength) 1,000 mg PO Q4H PRN PRN Reason: Pain Last Admin: 12/06/19 01:06 Dose: 1,000 mg Documented by: Benzocaine/Menthol (Dermoplast Pain Relief 20%-0.5% [place]) 78 gm TOP ASDIRECTED PRN PRN Reason: Perineal Comfort Measure Last Admin: 12/06/19 08:09 Dose: 1 spray Documented by: Bisacodyl (Dulcolax) 10 mg RECTAL ONETIME PRN PRN Reason: Constipation Butorphanol Tartrate (Stadol) 1 mg IVPUSH Q1H PRN PRN Reason: Pain Carboprost Tromethamine (Hemabate Ds) 250 mcg IM ASDIRECTED PRN PRN Reason: Post Hemorrhage Docusate Sodium (Colace) 100 mg PO BID PRN PRN Reason: Constipation Last Admin: 12/06/19 08:09 Dose: 100 mg Documented by: Emollient Ointment (Lansinoh Hpa) 0 gm TOP ASDIRECTED PRN PRN Reason: Sore Nipples Oxytocin/Sodium Chloride (Oxytocin 30 Unit/500 Ml-Ns) 30 unit in 500 mls @ 999 mls/hr IV TITRATE LEESA Tranexamic Acid 1,000 mg/ (Sodium Chloride) 110 mls @ 660 mls/hr IV ONETIME PRN PRN Reason: Bleeding Oxytocin/Sodium Chloride (Oxytocin 30 Unit/500 Ml-Ns) 30 unit in 500 mls @ 2 mls/hr IV TITRATE LEESA; Protocol Lactated Ringer's (Ringers, Lactated) 1,000 mls @ 150 mls/hr IV ASDIRECTED LEESA Last Admin: 12/05/19 07:09 Dose: 500 mls/hr Documented by: Ibuprofen (Motrin) 400 mg PO Q4H PRN PRN Reason: Pain Ibuprofen (Motrin) 800 mg PO Q6H PRN PRN Reason: Pain Last Admin: 12/06/19 08:09 Dose: 800 mg Documented by: Lidocaine HCl (Xylocaine 1%) 50 ml INJECT ONETIME PRN PRN Reason: Laceration repair Methylergonovine Maleate (Methergine) 0.2 mg IM ASDIRECTED PRN PRN Reason: Post Hemorrhage Misoprostol (Cytotec) 200 mcg PO ONETIME PRN PRN Reason: Post Hemorrhage Nalbuphine HCl (Nubain) 10 mg IVPUSH Q1H PRN PRN Reason: Pain (severe 7-10) Ondansetron HCl (Zofran) 4 mg IVPUSH Q6H PRN PRN Reason: Nausea/Vomiting Oxycodone HCl (Oxycodone) 5 mg PO Q2H PRN PRN Reason: Pain Sodium Chloride (Saline Flush) 10 ml FLUSH ASDIRECTED PRN PRN Reason: Keep Vein Open Sodium Chloride (Saline Flush) 2.5 ml FLUSH ASDIRECTED PRN PRN Reason: Keep Vein Open Sodium Chloride (Normal Saline) 10 ml IV ASDIRECTED PRN PRN Reason: IV Use Sterile Water (Sterile Water For Irrigation) 1,000 ml IRR ASDIRECTED PRN PRN Reason: delivery Terbutaline Sulfate (Brethine) 0.25 mg SUBCUT ASDIRECTED PRN PRN Reason: Tacysystole Witch Anand (Tucks) 1 pad TOP ASDIRECTED PRN PRN Reason: comfort care Last Admin: 12/06/19 08:09 Dose: 1 pad Documented by: Discontinued Medications Fentanyl/Bupivacaine HCl (Fentanyl/Bupivacaine/Ns 2 Mcg-0.125% 250 Ml) Confirm Administered Dose 250 mls @ as directed .ROUTE .STK-MED ONE Stop: 12/05/19 07:07 Last Admin: 12/06/19 09:07 Dose: Not Given Documented by: Ampicillin Sodium/Sulbactam (Sodium 3 gm/ Sodium Chloride) 100 mls @ 200 mls/hr IV ONETIME ONE Stop: 12/05/19 10:10 Last Admin: 12/05/19 10:25 Dose: 200 mls/hr Documented by: - Infant Interaction Support Person: - Recovery Exam Fundal Tone: Firm Fundal Level: At Umbilicus Fundal Placement: Midline Lochia Amount: Scant Lochia Color: Rubra/Red Perineum Description: Intact, Minimal Bruising/Swelling Episiotomy/Laceration: Approximated Bladder Status: Voiding - Exam Quality Assessment: Supplemental Oxygen General: Alert HEENT: Pupils Equal Neck: Supple Lungs: Clear to Auscultation GI/Abdominal Exam: Normal Bowel Sounds Extremities: Normal Inspection - Problem List & Annotations (1) Vaginal delivery SNOMED Code(s): 974052454 Code(s): O80 - ENCOUNTER FOR FULL-TERM UNCOMPLICATED DELIVERY Status: Acute Current Visit: No (2) Gestational diabetes mellitus SNOMED Code(s): 27503019 Code(s): O24.419 - GESTATIONAL DIABETES MELLITUS IN , UNSP CONTROL Status: Acute Current Visit: Yes - Problem List Review Problem List Initiated/Reviewed/Updated: Yes - My Orders Last 24 Hours: My Active Orders 12/05/19 09:40 Patient Status [ADT] Routine May Shower [RC] ASDIRECTED Up ad Daija [RC] ASDIRECTED Acetaminophen [Tylenol Extra Strength] 1,000 mg PO Q4H PRN Acetaminophen [Tylenol Extra Strength] 500 mg PO Q4H PRN Benzocaine/Menthol [Dermoplast Pain Relief 20%-0.5% [place]] 78 gm TOP ASDIRECTED PRN Docusate Sodium [Colace] 100 mg PO BID PRN Ibuprofen [Motrin] 400 mg PO Q4H PRN Ibuprofen [Motrin] 800 mg PO Q6H PRN Lanolin [Lansinoh HPA] See Dose Instructions TOP ASDIRECTED PRN bisacodyL [Dulcolax] 10 mg RECTAL ONETIME PRN oxyCODONE 5 mg PO Q2H PRN witch Anand [Tucks] 1 pad TOP ASDIRECTED PRN Assess Lochia [WOMSER] Per Unit Routine Assess Uterine Involution [WOMSER] Per Unit Routine Peripheral IV Discontinue [OM.PC] Routine Resuscitation Status Routine 12/06/19 Breakfast Regular Diet [DIET] - Assessment Assessment:: 24yo P2 s/p PPD 1 Normal lochia - Plan Plan:: Routine care Discharge home today
--- NOTE | 2019-12-06 10:47 | OR ---
SURGEON: SHILA ALEMAN DATE OF PROCEDURE: 12/05/2019 PREOPERATIVE DIAGNOSES: A 24-year-old G3, P2-0-0-2 at 39 weeks and 1 day, admitted in early labor with gestational diabetes mellitus A1. POSTOPERATIVE DIAGNOSES: A 24-year-old G3, P2-0-0-2 at 39 weeks and 1 day, admitted in early labor with gestational diabetes mellitus A1. PROCEDURE: 1. Normal spontaneous vaginal delivery. 2. Repair of second-degree laceration. 3. Manual removal of placenta ESTIMATED BLOOD LOSS: 300. INTRAVENOUS FLUID: Pitocin running. ANESTHESIA: Epidural. NOTES AND FINDING: A live male delivered at 8:55 a.m., scores of 8 and 9, and weight is 3360g. BRIEF HISTORY: She is a 24-year-old G3, P2-0-0-2 who was supposed to be admitted for induction of labor, but she came in early labor. She was 4 cm to 5 cm dilated. She was requesting epidural. She was AROM'd. She made quick progress, and she became fully dilated. DESCRIPTION OF PROCEDURE: With patient being fully dilated, she was encouraged to push. With good pushing effort, she delivered the head, subsequently by the anterior and posterior shoulder, and the body of the was delivered. Delayed cord clamping was observed. The placenta was attempted to delivered, but because of difficulty, a manual removal was done without any difficulty. Perineum was then inspected, noted to have a second-degree laceration, which was repaired in layers with 2-0 Monocryl. The patient tolerated the procedure well. All instrument and pad counts were correct x2. VANI / CHRISTOPHER /[id number]
== END 2019-12-06 13:50 | disposition home or self-care (01) | DRG 541 ==
LOC: MW.OBCHECK 05:11 → MW.OB 05:13 → MW.OBCHECK 05:37 → OBSVTOIN 08:55 → MW.OB 13:42
PROVIDERS: ADMIT Obstetrics & Gynecology; ATTEND Obstetrics & Gynecology
PROC: 10E0XZZ Delivery of Products of Conception, External Approach (ICD-10-PCS; principal; 2019-12-05)
PROC: 10907ZC Drainage of Amniotic Fluid, Therapeutic from Products of Conception, Via Natural or Artificial Opening (ICD-10-PCS; 2019-12-05)
PROC: 0KQM0ZZ Repair Perineum Muscle, Open Approach (ICD-10-PCS; 2019-12-05)
PROC: 3E0R3BZ Introduction of Anesthetic Agent into Spinal Canal, Percutaneous Approach (ICD-10-PCS; 2019-12-05)
PROC: 00HU33Z Insertion of Infusion Device into Spinal Canal, Percutaneous Approach (ICD-10-PCS; 2019-12-05)
PROC: 10D17Z9 Manual Extraction of Products of Conception, Retained, Via Natural or Artificial Opening (ICD-10-PCS; 2019-12-05)
DX: O24.429 Gestational diabetes mellitus in childbirth, unspecified control (principal); O70.1 Second degree perineal laceration during delivery; Z37.0 Single live birth; Z3A.39 39 weeks gestation of pregnancy; Z20.828 Contact with and (suspected) exposure to other viral communicable diseases
CPT/HCPCS: 36415; 51702; 59025; 59409; 82947; 82962; 85014; 85018; 85027; 86592; 86850; 86900; 86901; A9270-GY; J0295; J7050; J7120; U0002

== ENCOUNTER 2021-01-13 05:56 | Emergency (ER) | payer BC ==
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
--- NOTE | 2021-01-13 07:13 | CR ---
INDICATION: Patient fell; pain left foot. COMPARISON: None. Technique: Three-view study left foot. FINDINGS: No evidence of acute fracture or dislocation. No bone or soft tissue abnormalities. IMPRESSION: Negative radiographic examination of the left foot. Dictated by Franchesca Amin MD @ 01/13/2021 7:11:20 AM (Electronically Signed)
== END 2021-01-13 07:44 | disposition home or self-care (01) ==
LOC: MW.ED 05:56
DX: S99.922A Unspecified injury of left foot, initial encounter (principal); X50.1XXA Overexertion from prolonged static or awkward postures, initial encounter
CPT/HCPCS: 73630-26-LT; 73630-LT; 81025; 99283

== ENCOUNTER 2021-07-28 14:03 | Emergency (ER) | payer BC ==
[2021-07-28 15:00] LABS: BLOOD UREA NITROGEN,BUN 8 mg/dL (7.0-18.0); CARBON DIOXIDE,CO2 22.3 mmol/L (21.0-32.0); CHLORIDE,CL 103 mmol/L (98-107); GLUCOSE RANDOM 90 mg/dL (74-106); POTASSIUM,K 3.7 mmol/L (3.5-5.1); SODIUM,NA 135 mmol/L (136-145)
== END 2021-07-28 16:16 | disposition home or self-care (01) ==
LOC: MW.ED 14:03
DX: R20.2 Paresthesia of skin (principal)
CPT/HCPCS: 36415; 80053; 85025; 99284

== ENCOUNTER 2021-09-14 05:06 | Inpatient (IN) | payer BC ==
[2021-09-14] MEDS ORDERED: Terbutaline 1 MG/ML SDV SUBCUT PRN (05:12)
[2021-09-14] MEDS ORDERED: Ondansetron 4 MG/2 ML SDV IVPUSH PRN (05:13)
[2021-09-14] MEDS ORDERED: Lidocaine 1% 50 ML MDV INJECT PRN (05:13)
[2021-09-14] MEDS ORDERED: Carboprost Tromethamine 250 MCG/1 ML Amp IM PRN (05:13)
[2021-09-14] MEDS ORDERED: Tranexamic Acid 1,000 MG in Sodium Chloride 0.9% 100 ML IV PRN (05:13)
[2021-09-14] MEDS ORDERED: Sodium Chloride 0.9% 20 ML SDV IV PRN (05:13)
[2021-09-14] MEDS ORDERED: Sodium Chloride 0.9% 2.5 ML Syringe FLUSH PRN (05:13)
[2021-09-14] MEDS ORDERED: Butorphanol 1 MG/ML SDV IVPUSH PRN (05:13)
[2021-09-14] MEDS ORDERED: Methylergonovine 0.2 MG/1 ML Amp IM PRN (05:13)
[2021-09-14] MEDS ORDERED: Sodium Chloride 0.9% 10 ML Syringe FLUSH PRN (05:13)
[2021-09-14] MEDS ORDERED: Misoprostol 200 MCG Tab PO PRN (05:13)
[2021-09-14] MEDS ORDERED: Water For Irrigation,Sterile 1,000 ML Container IRR PRN (05:13)
[2021-09-14] MEDS ORDERED: Oxytocin/0.9 % Sodium Chloride 30 UNIT/500 ML BAG IV SCH ×2 (05:15)
[2021-09-14] MEDS: Lactated Ringers 1,000 ML IV SCH ×2 (06:05→09:29)
[2021-09-14] MEDS ORDERED: ePHEDrine 50 MG/ML SDV IVPUSH PRN ×2 (07:21)
[2021-09-14] MEDS ORDERED: Ropivacaine in NACL,ISO-OSM/PF 800 MG in Premix Bag 1 BAG EPIDUR SCH ×2 (07:30)
[2021-09-14] MEDS ORDERED: oxyCODONE 5 MG Tab PO PRN (12:48)
[2021-09-14] MEDS ORDERED: Ibuprofen 400 MG Tab PO PRN (12:48)
[2021-09-14] MEDS ORDERED: Acetaminophen 500 MG Tab PO PRN (12:48)
[2021-09-14] MEDS ORDERED: Benzocaine/Menthol 20%-0.5% Spray 78 GM Cannister TOP PRN (12:48)
[2021-09-14] MEDS ORDERED: Lanolin 100% Cream 7 GM Tube TOP PRN (12:48)
[2021-09-14] MEDS ORDERED: Docusate Sodium 100 MG Cap PO PRN (12:48)
[2021-09-14] MEDS ORDERED: Bisacodyl 10 MG Supp RECTAL PRN (12:48)
[2021-09-14] MEDS ORDERED: Witch Hazel Medicated Pads 40/Jar TOP PRN (12:48)
[2021-09-14] MEDS ORDERED: Ibuprofen 800 MG Tab PO PRN (12:48)
[2021-09-14] MEDS: Acetaminophen 500 MG Tab PO PRN ×2 (14:52→21:36)
== END 2021-09-15 14:55 | disposition home or self-care (01) | DRG 542 ==
LOC: MW.OBCHECK 05:06 → MW.OB 05:08 → MW.OBCHECK 05:13 → MW.OB 05:13 → OBSVTOIN 12:24 → MW.OB 15:28
PROVIDERS: ADMIT Obstetrics & Gynecology; ATTEND Obstetrics & Gynecology
PROC: 10E0XZZ Delivery of Products of Conception, External Approach (ICD-10-PCS; principal; 2021-09-14)
PROC: 0HQ9XZZ Repair Perineum Skin, External Approach (ICD-10-PCS; 2021-09-14)
PROC: 3E0R3BZ Introduction of Anesthetic Agent into Spinal Canal, Percutaneous Approach (ICD-10-PCS; 2021-09-14)
PROC: 00HU33Z Insertion of Infusion Device into Spinal Canal, Percutaneous Approach (ICD-10-PCS; 2021-09-14)
PROC: 0UBMXZZ Excision of Vulva, External Approach (ICD-10-PCS; 2021-09-14)
DX: O24.420 Gestational diabetes mellitus in childbirth, diet controlled (principal); Z3A.38 38 weeks gestation of pregnancy; Z37.0 Single live birth; Z20.822 Contact with and (suspected) exposure to COVID-19; N90.89 Other specified noninflammatory disorders of vulva and perineum
CPT/HCPCS: 01967; 36415; 51702; 59025; 59409; 82803; 82947; 85027; 86592; 86850; 86900; 86901; A9270-GY; J2590; J7120; U0002